=== PATIENT | male | born 1965 | race Caucasian/White ===

== ENCOUNTER 2016-11-22 15:47 | Inpatient (IN) | payer MEDICAID ==
[~2016-11-22] VITALS: Ht 177.8 cm; Wt 78.0 kg
[2016-11-22 16:22] VITALS: BP_SYST 123
[2016-11-22] MEDS ORDERED: VANCOMYCIN HCL 1,000 MG in NS 250 ML IV ONE (16:30)
[2016-11-22] MEDS ORDERED: DIPH-TET-PERTUS Vaccine 0.5 ML VIAL (ADACEL) I.M. ONE (16:30)
[2016-11-22 16:56] LABS: BASOPHILS % (AUTO) 0.3 % (0.0-2.0); EOSINOPHILS # (AUTO) 0.1 K/uL (0.0-0.4); EOSINOPHILS % (AUTO) 0.9 % (0.0-4.0); HEMATOCRIT 34.3 % (36-54); HEMOGLOBIN 11.2 g/dL (14.0-18.0); LYMPHOCYTES # (AUTO) 1.5 K/uL (1.0-5.5); LYMPHOCYTES % (AUTO) 10.8 % (20.5-51.5); MEAN CORPUSCULAR HEMOGLOBIN 28 pg (27-31); MEAN CORPUSCULAR HGB CONC 33 % (32-36); MEAN CORPUSCULAR VOLUME 85 fL (79.0-98.0); MONOCYTES # (AUTO) 0.6 K/uL (0.0-1.0); MONOCYTES % (AUTO) 4.7 % (1.7-9.3); NEUTROPHILS # (AUTO) 11.3 K/uL (1.8-7.7); NEUTROPHILS % (AUTO) 83.3 % (40.0-70.0); PLATELET COUNT (AUTO) 422 K/uL (130-430); RED BLOOD CELL COUNT(AUTO) 4.03 MIL/uL (4.2-6.2); RED CELL DISTRIBUTION WIDTH 12.3 % (9.0-15.0); WHITE BLOOD COUNT (AUTO) 13.5 K/uL (4.8-10.8)
[2016-11-22] MEDS ORDERED: MORPHINE 4 MG/ML INJ. SYRINGE IVP ONE (17:00)
[2016-11-22] MEDS ORDERED: ONDANSETRON HCL 4 MG/2 ML VIAL IVP ONE (17:00)
[2016-11-22 17:07] LABS: PROTHROMBIN TIME 10.7 SECS (9.5-12.5)
[2016-11-22 17:12] LABS: CALCIUM 8.6 mg/dL (8.4-11.0); CREATININE 1.76 mg/dL (0.55-1.30); POTASSIUM 4.6 mmol/L (3.5-5.1); TOTAL BILIRUBIN 0.4 mg/dL (0.0-1.0)
[2016-11-22] MEDS ORDERED: INSULIN REGULAR, HUMAN 10 UNITS/0.1 ML INJ IVP ONE (17:30)
[2016-11-22] MEDS ORDERED: VANCOMYCIN HCL 1000 MG/VIAL IV ONE (18:06)
[2016-11-22] MEDS ORDERED: DEXTROSE 50% JECT 50 ML DISP.SYRIN IVP PRN (18:45)
[2016-11-22 19:45] VITALS: BP_SYST 115
[2016-11-22] MEDS: NACL 0.9% 1,000 ML IV SCH (21:05)
[2016-11-22] MEDS: PIPERACILLIN/TAZO 3.375/DEX-IS 50 ML IV SCH (21:05)
[2016-11-22] MEDS: INSULIN REGULAR, HUMAN 100 UNITS/ML, 10 ML VIAL (novoLIN R) SUBCUT PRN (23:45)
[2016-11-23] VITALS: BP_SYST 134
[2016-11-23] MEDS: PIPERACILLIN/TAZO 3.375/DEX-IS 50 ML IV SCH ×4 (02:27→20:25)
[2016-11-23 04:00] VITALS: BP_SYST 132
[2016-11-23] MEDS: NACL 0.9% 1,000 ML IV SCH (09:51)
[2016-11-23] MEDS: VANCOMYCIN HCL 1,000 MG in NS 250 ML IV SCH (09:51)
[2016-11-23 12:00] VITALS: BP_SYST 127
[2016-11-23 12:11] LABS: BASOPHILS % (AUTO) 0.2 % (0.0-2.0); EOSINOPHILS # (AUTO) 0.1 K/uL (0.0-0.4); HEMATOCRIT 32.4 % (36-54); HEMOGLOBIN 10.7 g/dL (14.0-18.0); LYMPHOCYTES # (AUTO) 1.9 K/uL (1.0-5.5); LYMPHOCYTES % (AUTO) 16.9 % (20.5-51.5); MEAN CORPUSCULAR HEMOGLOBIN 28 pg (27-31); MEAN CORPUSCULAR HGB CONC 33 % (32-36); MEAN CORPUSCULAR VOLUME 86 fL (79.0-98.0); MONOCYTES # (AUTO) 0.7 K/uL (0.0-1.0); MONOCYTES % (AUTO) 6.5 % (1.7-9.3); NEUTROPHILS # (AUTO) 8.8 K/uL (1.8-7.7); NEUTROPHILS % (AUTO) 75.4 % (40.0-70.0); PLATELET COUNT (AUTO) 364 K/uL (130-430); RED BLOOD CELL COUNT(AUTO) 3.78 MIL/uL (4.2-6.2); RED CELL DISTRIBUTION WIDTH 12.6 % (9.0-15.0); WHITE BLOOD COUNT (AUTO) 11.5 K/uL (4.8-10.8)
[2016-11-23 12:19] LABS: CALCIUM 8.4 mg/dL (8.4-11.0); CREATININE 1.4 mg/dL (0.55-1.30); POTASSIUM 4.9 mmol/L (3.5-5.1)
[2016-11-23 12:23] LABS: ALBUMIN 2.7 g/dL (3.4-4.8); TOTAL BILIRUBIN 0.3 mg/dL (0.0-1.0); TOTAL PROTEIN, SERUM 7.4 g/dL (6.4-8.3)
[2016-11-23] MEDS: INSULIN REGULAR, HUMAN 100 UNITS/ML, 10 ML VIAL (novoLIN R) SUBCUT PRN ×2 (12:28→17:23)
[2016-11-23 18:04] VITALS: BP_SYST 128
[2016-11-24] VITALS: BP_SYST 147
[2016-11-24] MEDS: PIPERACILLIN/TAZO 3.375/DEX-IS 50 ML IV SCH ×4 (01:07→21:17)
[2016-11-24] MEDS: NACL 0.9% 1,000 ML IV SCH ×3 (01:07→14:08)
[2016-11-24] MEDS: INSULIN REGULAR, HUMAN 100 UNITS/ML, 10 ML VIAL (novoLIN R) SUBCUT PRN ×4 (01:20→17:06)
[2016-11-24 04:00] VITALS: BP_SYST 134
[2016-11-24 09:23] VITALS: BP_SYST 134
[2016-11-24] MEDS: VANCOMYCIN HCL 1,000 MG in NS 250 ML IV SCH (09:38)
[2016-11-24 12:00] VITALS: BP_SYST 145
[2016-11-24 18:24] VITALS: BP_SYST 138
[2016-11-24 19:10] VITALS: BP_SYST 138
[2016-11-25] VITALS (7 sets, daily range): BP systolic 124–153
[2016-11-25] MEDS: PIPERACILLIN/TAZO 3.375/DEX-IS 50 ML IV SCH ×2 (00:41→05:46)
[2016-11-25] MEDS: INSULIN REGULAR, HUMAN 100 UNITS/ML, 10 ML VIAL (novoLIN R) SUBCUT PRN ×4 (00:47→17:31)
[2016-11-25] MEDS: NACL 0.9% 1,000 ML IV SCH ×2 (06:45→16:56)
[2016-11-25] MEDS: VANCOMYCIN HCL 1,000 MG in NS 250 ML IV SCH (09:06)
[2016-11-25 10:59] LABS: BASOPHILS # (AUTO) 0.1 K/uL (0.0-0.2); BASOPHILS % (AUTO) 0.7 % (0.0-2.0); EOSINOPHILS # (AUTO) 0.1 K/uL (0.0-0.4); EOSINOPHILS % (AUTO) 1.2 % (0.0-4.0); HEMATOCRIT 34.5 % (36-54); HEMOGLOBIN 11.4 g/dL (14.0-18.0); LYMPHOCYTES # (AUTO) 2.2 K/uL (1.0-5.5); MEAN CORPUSCULAR HEMOGLOBIN 28 pg (27-31); MEAN CORPUSCULAR HGB CONC 33 % (32-36); MEAN CORPUSCULAR VOLUME 86 fL (79.0-98.0); MONOCYTES # (AUTO) 0.5 K/uL (0.0-1.0); MONOCYTES % (AUTO) 5.5 % (1.7-9.3); NEUTROPHILS # (AUTO) 6.5 K/uL (1.8-7.7); NEUTROPHILS % (AUTO) 69.6 % (40.0-70.0); PLATELET COUNT (AUTO) 442 K/uL (130-430); RED BLOOD CELL COUNT(AUTO) 4.02 MIL/uL (4.2-6.2); RED CELL DISTRIBUTION WIDTH 12.6 % (9.0-15.0); WHITE BLOOD COUNT (AUTO) 9.4 K/uL (4.8-10.8)
[2016-11-25 11:01] LABS: CALCIUM 8.6 mg/dL (8.4-11.0); CREATININE 1.3 mg/dL (0.55-1.30); POTASSIUM 4.2 mmol/L (3.5-5.1)
[2016-11-25 11:06] LABS: ALBUMIN 2.8 g/dL (3.4-4.8); TOTAL BILIRUBIN 0.3 mg/dL (0.0-1.0); TOTAL PROTEIN, SERUM 7.9 g/dL (6.4-8.3)
[2016-11-25] MEDS: BALSAM PERU/CASTOR OIL 60 GM OINT...G. TP SCH (17:28)
[2016-11-25] MEDS: LACTOBACILLUS RHAMNOSUS GG 1 CAP CAPSULE PO SCH (22:41)
[2016-11-25] MEDS: CEFEPIME 1 GM in D5W 50 ML IV SCH (22:42)
[2016-11-26] VITALS (7 sets, daily range): BP systolic 118–185
[2016-11-26] MEDS: INSULIN REGULAR, HUMAN 100 UNITS/ML, 10 ML VIAL (novoLIN R) SUBCUT PRN ×3 (00:06→18:47)
[2016-11-26] MEDS: NACL 0.9% 1,000 ML IV SCH ×3 (09:30→22:45)
[2016-11-26] MEDS: LACTOBACILLUS RHAMNOSUS GG 1 CAP CAPSULE PO SCH ×2 (09:31→20:33)
[2016-11-26] MEDS: CEFEPIME 1 GM in D5W 50 ML IV SCH ×2 (09:31→20:34)
[2016-11-26] MEDS: BALSAM PERU/CASTOR OIL 60 GM OINT...G. TP SCH (09:50)
[2016-11-26] MEDS: VANCOMYCIN HCL 1,000 MG in NS 250 ML IV SCH ×2 (10:23→20:42)
[2016-11-26] MEDS: D5NS 1,000 ML IV SCH ×2 (14:19→23:45)
[2016-11-26 14:48] LABS: C-REACTIVE PROTEIN QUANT 0.6 mg/dL (0-0.5); THYROID STIMULATING HORMONE 0.66 uIu/mL (0.34-4.82)
[2016-11-26 15:18] LABS: RETICULOCYTE COUNT 2.1 % (0.5-1.5)
[2016-11-26 15:41] LABS: BILIRUBIN,URINE NEGATIVE (NEGATIVE); BLOOD, URINE NEGATIVE (NEGATIVE); CLARITY/URINE CLEAR (CLEAR); COLOR,URINE YELLOW (YELLOW); GLUCOSE,URINE TRACE (NEGATIVE); KETONES,URINE NEGATIVE (NEGATIVE); LEUKOCYTE ESTERASE ,URINE NEGATIVE (NEGATIVE); NITRITE, URINE NEGATIVE (NEGATIVE); PROTEIN URINE TRACE (NEGATIVE); UROBILINOGEN,URINE 0.2 (0.2-1.0)
[2016-11-26 15:59] LABS: BACTERIA,URINE None Seen /HPF (None Seen); RBC,URINE 0-3 /HPF (0-3); WBC,URINE 0-3 /HPF (0-3)
[2016-11-26] MEDS ORDERED: NACL 0.9% 1,000 ML IV SCH (16:59)
[2016-11-26] MEDS ORDERED: MORPHINE 2 MG/ML INJ. SYRINGE IVP PRN ×3 (17:00)
[2016-11-26] MEDS ORDERED: METOCLOPRAMIDE HCL 10 MG/2 ML VIAL IVP PRN (17:00)
[2016-11-27] MEDS: INSULIN REGULAR, HUMAN 100 UNITS/ML, 10 ML VIAL (novoLIN R) SUBCUT PRN ×3 (05:54→17:19)
[2016-11-27] MEDS: NACL 0.9% 1,000 ML IV SCH ×2 (08:45→18:45)
[2016-11-27] MEDS: BALSAM PERU/CASTOR OIL 60 GM OINT...G. TP SCH (09:00)
[2016-11-27 09:09] VITALS: BP_SYST 125
[2016-11-27] MEDS: LACTOBACILLUS RHAMNOSUS GG 1 CAP CAPSULE PO SCH ×2 (09:10→20:36)
[2016-11-27] MEDS: CEFEPIME 1 GM in D5W 50 ML IV SCH ×2 (09:11→20:37)
[2016-11-27] MEDS: VANCOMYCIN HCL 1,000 MG in NS 250 ML IV SCH ×2 (09:11→20:38)
[2016-11-27 12:25] VITALS: BP_SYST 130
[2016-11-27 13:22] LABS: FOLATE (FOLIC ACID) 12.9 ng/mL (>3.0)
[2016-11-27 16:16] VITALS: BP_SYST 140
[2016-11-27 19:10] VITALS: BP_SYST 132
[2016-11-27 23:53] VITALS: BP_SYST 122
[2016-11-28] MEDS: INSULIN REGULAR, HUMAN 100 UNITS/ML, 10 ML VIAL (novoLIN R) SUBCUT PRN ×4 (00:15→17:25)
[2016-11-28] MEDS: NACL 0.9% 1,000 ML IV SCH ×2 (04:45→14:45)
[2016-11-28 04:46] VITALS: BP_SYST 103
[2016-11-28 08:30] VITALS: BP_SYST 108
[2016-11-28] MEDS: BALSAM PERU/CASTOR OIL 60 GM OINT...G. TP SCH (09:00)
[2016-11-28] MEDS: CEFEPIME 1 GM in D5W 50 ML IV SCH ×2 (10:05→21:47)
[2016-11-28] MEDS: LACTOBACILLUS RHAMNOSUS GG 1 CAP CAPSULE PO SCH ×2 (10:05→21:47)
[2016-11-28] MEDS: VANCOMYCIN HCL 1,000 MG in NS 250 ML IV SCH ×2 (11:36→22:26)
[2016-11-28 12:08] VITALS: BP_SYST 136
[2016-11-28 16:04] VITALS: BP_SYST 141
[2016-11-29] VITALS (7 sets, daily range): BP systolic 107–151
[2016-11-29] MEDS: INSULIN REGULAR, HUMAN 100 UNITS/ML, 10 ML VIAL (novoLIN R) SUBCUT PRN ×5 (00:14→23:47)
[2016-11-29] MEDS: NACL 0.9% 1,000 ML IV SCH ×3 (05:17→17:12)
[2016-11-29 06:38] LABS: BASOPHILS # (AUTO) 0.1 K/uL (0.0-0.2); BASOPHILS % (AUTO) 0.8 % (0.0-2.0); EOSINOPHILS # (AUTO) 0.2 K/uL (0.0-0.4); EOSINOPHILS % (AUTO) 1.9 % (0.0-4.0); HEMATOCRIT 34.3 % (36-54); HEMOGLOBIN 11.3 g/dL (14.0-18.0); LYMPHOCYTES # (AUTO) 2.6 K/uL (1.0-5.5); LYMPHOCYTES % (AUTO) 26.4 % (20.5-51.5); MEAN CORPUSCULAR HEMOGLOBIN 28 pg (27-31); MEAN CORPUSCULAR HGB CONC 33 % (32-36); MEAN CORPUSCULAR VOLUME 86 fL (79.0-98.0); MONOCYTES # (AUTO) 0.8 K/uL (0.0-1.0); MONOCYTES % (AUTO) 7.9 % (1.7-9.3); NEUTROPHILS # (AUTO) 6.1 K/uL (1.8-7.7); PLATELET COUNT (AUTO) 447 K/uL (130-430); RED BLOOD CELL COUNT(AUTO) 3.98 MIL/uL (4.2-6.2); RED CELL DISTRIBUTION WIDTH 12.6 % (9.0-15.0); WHITE BLOOD COUNT (AUTO) 9.8 K/uL (4.8-10.8)
[2016-11-29 06:54] LABS: ALBUMIN 2.7 g/dL (3.4-4.8); CALCIUM 8.4 mg/dL (8.4-11.0); CREATININE 1.25 mg/dL (0.55-1.30); POTASSIUM 4.3 mmol/L (3.5-5.1); TOTAL BILIRUBIN 0.4 mg/dL (0.0-1.0); TOTAL PROTEIN, SERUM 7.5 g/dL (6.4-8.3)
[2016-11-29] MEDS: CEFEPIME 1 GM in D5W 50 ML IV SCH ×2 (09:28→20:57)
[2016-11-29] MEDS: LACTOBACILLUS RHAMNOSUS GG 1 CAP CAPSULE PO SCH ×2 (09:28→20:57)
[2016-11-29] MEDS: BALSAM PERU/CASTOR OIL 60 GM OINT...G. TP SCH (09:28)
[2016-11-29] MEDS: VANCOMYCIN HCL 1,000 MG in NS 250 ML IV SCH ×2 (10:03→21:31)
[2016-11-29] MEDS ORDERED: CEFE1FRO IV (15:35)
[2016-11-29] MEDS ORDERED: TRAM50TA92 PO (17:18)
[2016-11-30] VITALS (7 sets, daily range): BP systolic 107–152
[2016-11-30 06:30] LABS: BASOPHILS # (AUTO) 0.1 K/uL (0.0-0.2); BASOPHILS % (AUTO) 0.8 % (0.0-2.0); EOSINOPHILS # (AUTO) 0.3 K/uL (0.0-0.4); EOSINOPHILS % (AUTO) 2.6 % (0.0-4.0); HEMATOCRIT 35.4 % (36-54); HEMOGLOBIN 11.7 g/dL (14.0-18.0); LYMPHOCYTES # (AUTO) 2.6 K/uL (1.0-5.5); LYMPHOCYTES % (AUTO) 23.7 % (20.5-51.5); MEAN CORPUSCULAR HEMOGLOBIN 28 pg (27-31); MEAN CORPUSCULAR HGB CONC 33 % (32-36); MEAN CORPUSCULAR VOLUME 86 fL (79.0-98.0); MONOCYTES # (AUTO) 0.8 K/uL (0.0-1.0); MONOCYTES % (AUTO) 7.3 % (1.7-9.3); NEUTROPHILS % (AUTO) 65.6 % (40.0-70.0); PLATELET COUNT (AUTO) 465 K/uL (130-430); RED BLOOD CELL COUNT(AUTO) 4.12 MIL/uL (4.2-6.2); RED CELL DISTRIBUTION WIDTH 13.1 % (9.0-15.0); WHITE BLOOD COUNT (AUTO) 10.8 K/uL (4.8-10.8)
[2016-11-30] MEDS: INSULIN REGULAR, HUMAN 100 UNITS/ML, 10 ML VIAL (novoLIN R) SUBCUT PRN ×3 (06:34→17:55)
[2016-11-30 07:08] LABS: ALBUMIN 2.9 g/dL (3.4-4.8); CALCIUM 8.9 mg/dL (8.4-11.0); CREATININE 1.33 mg/dL (0.55-1.30); POTASSIUM 4.8 mmol/L (3.5-5.1); TOTAL BILIRUBIN 0.3 mg/dL (0.0-1.0); TOTAL PROTEIN, SERUM 7.7 g/dL (6.4-8.3)
[2016-11-30] MEDS: NACL 0.9% 1,000 ML IV SCH ×2 (07:24→17:51)
[2016-11-30] MEDS: VANCOMYCIN HCL 1,000 MG in NS 250 ML IV SCH ×2 (10:57→20:24)
[2016-11-30] MEDS: CEFEPIME 1 GM in D5W 50 ML IV SCH ×2 (10:58→19:11)
[2016-11-30] MEDS: BALSAM PERU/CASTOR OIL 60 GM OINT...G. TP SCH (11:19)
[2016-11-30] MEDS: LACTOBACILLUS RHAMNOSUS GG 1 CAP CAPSULE PO SCH ×2 (11:19→20:23)
[2016-11-30] MEDS ORDERED: GLIP5TAB13 PO (22:41)
== END 2016-11-30 23:15 | disposition home health service (06) | DRG 314 ==
LOC: SED 15:47 → SMU 18:04
PROVIDERS: ADMIT Internal Medicine Hospice and Palliative Medicine; ATTEND Internal Medicine Hospice and Palliative Medicine
PROC: 0Y6P0Z1 Detachment at Right 1st Toe, High, Open Approach (ICD-10-PCS; principal; 2016-11-27)
DX: E11.69 Type 2 diabetes mellitus with other specified complication (principal); M86.171 Other acute osteomyelitis, right ankle and foot; L97.519 Non-pressure chronic ulcer of other part of right foot with unspecified severity; D63.8 Anemia in other chronic diseases classified elsewhere; E11.621 Type 2 diabetes mellitus with foot ulcer
CPT/HCPCS: 36415; 71010; 73721; 80053; 80202-TC; 81000-TC; 82607; 82746; 82962; 83036; 83605; 84443-TC; 85025; 85044-TC; 85610-TC; 85651-TC; 86140; 87040-TC; 87070-TC; 87186-TC; 88305; 88311; 90715; 93005; 94010; 94760; 96365; 96375; 99285; J0692; J1815; J1956; J2270; J2405; J2543; J3370; J7030; J7042; J7050; J7060

== ENCOUNTER 2017-09-05 15:40 | Inpatient (IN) | payer MEDICAID ==
[~2017-09-05] VITALS: Ht 177.8 cm; Wt 79.4 kg
[~2017-09-05 15:40] MED LIST: CEFE1FRO IV; GLIP5TAB13 PO; TRAM50TA92 PO
[2017-09-05 15:44] VITALS: BP_SYST 142
[2017-09-05 16:18] LABS: BASOPHILS # (AUTO) 0.1 K/uL (0.0-0.2); BASOPHILS % (AUTO) 0.3 % (0.0-2.0); EOSINOPHILS # (AUTO) 0.1 K/uL (0.0-0.4); EOSINOPHILS % (AUTO) 0.4 % (0.0-4.0); HEMATOCRIT 32.6 % (36-54); HEMOGLOBIN 10.9 g/dL (14.0-18.0); LYMPHOCYTES # (AUTO) 0.7 K/uL (1.0-5.5); LYMPHOCYTES % (AUTO) 3.7 % (20.5-51.5); MEAN CORPUSCULAR HEMOGLOBIN 29 pg (27-31); MEAN CORPUSCULAR HGB CONC 34 % (32-36); MEAN CORPUSCULAR VOLUME 85 fL (79.0-98.0); MONOCYTES % (AUTO) 5.3 % (1.7-9.3); NEUTROPHILS # (AUTO) 16.2 K/uL (1.8-7.7); PLATELET COUNT (AUTO) 384 K/uL (130-430); RED BLOOD CELL COUNT(AUTO) 3.83 MIL/uL (4.2-6.2); RED CELL DISTRIBUTION WIDTH 12.5 % (9.0-15.0); WHITE BLOOD COUNT (AUTO) 18.1 K/uL (4.8-10.8)
[2017-09-05 16:34] LABS: CALCIUM 8.8 mg/dL (8.4-11.0); CREATININE 1.6 mg/dL (0.55-1.30); POTASSIUM 3.6 mmol/L (3.5-5.1)
[2017-09-05 16:40] LABS: TOTAL BILIRUBIN 0.5 mg/dL (0.0-1.0)
[2017-09-05 16:47] LABS: NEUTROPHILS % (AUTO) 90.3 % (40.0-70.0)
[2017-09-05] MEDS ORDERED: DIPHENHYDRAMINE INJ 50 MG/ML VIAL IVP ONE (17:00)
[2017-09-05] MEDS ORDERED: MORPHINE 4 MG/ML INJ. SYRINGE IVP ONE (17:00)
[2017-09-05] MEDS ORDERED: CLINDAMYCIN 600 mg/50mL D5W 50 ML IV ONE (17:00)
[2017-09-05] MEDS ORDERED: VANCOMYCIN HCL 1,000 MG in NS 250 ML IV ONE (17:00)
[2017-09-05] MEDS ORDERED: VANCOMYCIN HCL 1000 MG/VIAL IV ONE (17:06)
[2017-09-05] MEDS: PIPERACILLIN/TAZO 3.375/DEX-IS 50 ML IV SCH (18:00)
[2017-09-05] MEDS ORDERED: DEXTROSE 50% JECT 50 ML DISP.SYRIN IVP PRN (18:15)
[2017-09-05] MEDS ORDERED: ONDANSETRON HCL 4 MG/2 ML VIAL IVP PRN (18:15)
[2017-09-05 18:31] VITALS: BP_SYST 127
[2017-09-05] MEDS: NACL 0.9% 1,000 ML IV SCH (18:34)
[2017-09-05 19:39] VITALS: BP_SYST 107
[2017-09-05 20:03] VITALS: BP_SYST 107
[2017-09-06 00:32] VITALS: BP_SYST 108
[2017-09-06] MEDS: PIPERACILLIN/TAZO 3.375/DEX-IS 50 ML IV SCH ×5 (00:50→23:09)
[2017-09-06] MEDS: INSULIN REGULAR, HUMAN 100 UNITS/ML, 10 ML VIAL (novoLIN R) SUBCUT PRN ×2 (00:54→17:11)
[2017-09-06] MEDS: MORPHINE 4 MG/ML INJ. SYRINGE IVP PRN ×2 (01:05→20:12)
[2017-09-06] MEDS: NACL 0.9% 1,000 ML IV SCH ×3 (06:21→23:03)
[2017-09-06 06:25] LABS: BASOPHILS % (AUTO) 0.3 % (0.0-2.0); EOSINOPHILS # (AUTO) 0.1 K/uL (0.0-0.4); EOSINOPHILS % (AUTO) 0.9 % (0.0-4.0); HEMATOCRIT 28.6 % (36-54); HEMOGLOBIN 9.9 g/dL (14.0-18.0); LYMPHOCYTES # (AUTO) 1.4 K/uL (1.0-5.5); LYMPHOCYTES % (AUTO) 8.5 % (20.5-51.5); MEAN CORPUSCULAR HEMOGLOBIN 29 pg (27-31); MEAN CORPUSCULAR HGB CONC 35 % (32-36); MEAN CORPUSCULAR VOLUME 84 fL (79.0-98.0); MONOCYTES # (AUTO) 1.2 K/uL (0.0-1.0); MONOCYTES % (AUTO) 7.1 % (1.7-9.3); NEUTROPHILS # (AUTO) 13.6 K/uL (1.8-7.7); NEUTROPHILS % (AUTO) 83.2 % (40.0-70.0); PLATELET COUNT (AUTO) 311 K/uL (130-430); RED BLOOD CELL COUNT(AUTO) 3.43 MIL/uL (4.2-6.2); RED CELL DISTRIBUTION WIDTH 12.5 % (9.0-15.0); WHITE BLOOD COUNT (AUTO) 16.3 K/uL (4.8-10.8)
[2017-09-06] MEDS: ACETAMINOPHEN 325 MG TABLET PO PRN ×2 (06:26→22:58)
[2017-09-06 06:44] LABS: ALBUMIN 2.5 g/dL (3.4-4.8); CALCIUM 8.3 mg/dL (8.4-11.0); CREATININE 1.62 mg/dL (0.55-1.30); POTASSIUM 4.1 mmol/L (3.5-5.1); TOTAL BILIRUBIN 0.7 mg/dL (0.0-1.0)
[2017-09-06 08:30] VITALS: BP_SYST 122
[2017-09-06 11:43] VITALS: BP_SYST 129
[2017-09-06] MEDS: VANCOMYCIN HCL 750 MG in NS 250 ML IV SCH (12:03)
[2017-09-06] MEDS ORDERED: GADOPENTETATE DIMEGLUMINE 15 ML VIAL IV ONE (12:36)
[2017-09-06 16:00] VITALS: BP_SYST 138
[2017-09-06 20:00] VITALS: BP_SYST 134
[2017-09-06 23:24] VITALS: BP_SYST 128
[2017-09-07] MEDS: VANCOMYCIN HCL 750 MG in NS 250 ML IV SCH ×2 (00:03→12:28)
[2017-09-07] MEDS: INSULIN REGULAR, HUMAN 100 UNITS/ML, 10 ML VIAL (novoLIN R) SUBCUT PRN (00:08)
[2017-09-07] MEDS: PIPERACILLIN/TAZO 3.375/DEX-IS 50 ML IV SCH ×3 (06:53→18:00)
[2017-09-07 08:02] VITALS: BP_SYST 137
[2017-09-07] MEDS: NACL 0.9% 1,000 ML IV SCH (11:26)
[2017-09-07] MEDS: NEOMY SULF/BACITRAC ZN/POLY 14.2 GM OINT..GM. TP SCH ×2 (11:28→22:34)
[2017-09-07 12:11] VITALS: BP_SYST 129
[2017-09-07] MEDS: MORPHINE 4 MG/ML INJ. SYRINGE IVP PRN ×2 (14:51→22:33)
[2017-09-07 16:50] VITALS: BP_SYST 109
[2017-09-07 19:10] VITALS: BP_SYST 110
[2017-09-08] MEDS: VANCOMYCIN HCL 750 MG in NS 250 ML IV SCH ×2 (00:04→14:10)
[2017-09-08] MEDS: PIPERACILLIN/TAZO 3.375/DEX-IS 50 ML IV SCH ×4 (00:04→16:55)
[2017-09-08 00:54] VITALS: BP_SYST 122
[2017-09-08] MEDS: NACL 0.9% 1,000 ML IV SCH ×2 (02:57→16:56)
[2017-09-08] MEDS: MORPHINE 4 MG/ML INJ. SYRINGE IVP PRN ×2 (04:58→21:01)
[2017-09-08] MEDS ORDERED: FLU VACC QS 2017-18(36MOS+)/PF 0.5 ML/SYR SYRINGE I.M. PRN (07:15)
[2017-09-08 08:36] VITALS: BP_SYST 133
[2017-09-08] MEDS: NEOMY SULF/BACITRAC ZN/POLY 14.2 GM OINT..GM. TP SCH ×2 (10:00→21:01)
[2017-09-08] MEDS ORDERED: CEPH-568 PO (12:19)
[2017-09-08 12:36] VITALS: BP_SYST 132
[2017-09-08 16:27] VITALS: BP_SYST 128
[2017-09-08 19:11] VITALS: BP_SYST 128
[2017-09-09] MEDS: VANCOMYCIN HCL 750 MG in NS 250 ML IV SCH ×2 (00:15→12:20)
[2017-09-09] MEDS: PIPERACILLIN/TAZO 3.375/DEX-IS 50 ML IV SCH ×3 (00:15→11:51)
[2017-09-09] MEDS: MORPHINE 4 MG/ML INJ. SYRINGE IVP PRN ×3 (00:45→12:21)
[2017-09-09] MEDS: NACL 0.9% 1,000 ML IV SCH ×2 (02:00→11:51)
[2017-09-09 02:45] VITALS: BP_SYST 139
[2017-09-09 08:00] VITALS: BP_SYST 119
[2017-09-09] MEDS: NEOMY SULF/BACITRAC ZN/POLY 14.2 GM OINT..GM. TP SCH (08:13)
[2017-09-09 08:57] LABS: BASOPHILS # (AUTO) 0.1 K/uL (0.0-0.2); BASOPHILS % (AUTO) 0.9 % (0.0-2.0); EOSINOPHILS # (AUTO) 0.5 K/uL (0.0-0.4); EOSINOPHILS % (AUTO) 4.1 % (0.0-4.0); HEMATOCRIT 29.3 % (36-54); HEMOGLOBIN 9.8 g/dL (14.0-18.0); MEAN CORPUSCULAR HEMOGLOBIN 29 pg (27-31); MEAN CORPUSCULAR HGB CONC 33 % (32-36); MEAN CORPUSCULAR VOLUME 86 fL (79.0-98.0); MONOCYTES # (AUTO) 1.2 K/uL (0.0-1.0); NEUTROPHILS # (AUTO) 7.8 K/uL (1.8-7.7); PLATELET COUNT (AUTO) 416 K/uL (130-430); RED BLOOD CELL COUNT(AUTO) 3.42 MIL/uL (4.2-6.2); RED CELL DISTRIBUTION WIDTH 12.7 % (9.0-15.0); WHITE BLOOD COUNT (AUTO) 11.6 K/uL (4.8-10.8)
[2017-09-09 09:13] LABS: CALCIUM 8.6 mg/dL (8.4-11.0); CREATININE 1.36 mg/dL (0.55-1.30); POTASSIUM 4.5 mmol/L (3.5-5.1)
[2017-09-09 09:15] LABS: ALBUMIN 2.2 g/dL (3.4-4.8); TOTAL BILIRUBIN 0.3 mg/dL (0.0-1.0)
[2017-09-09 12:39] VITALS: BP_SYST 127
[2017-09-09 16:00] VITALS: BP_SYST 127
[2017-09-09 16:08] VITALS: BP_SYST 122
== END 2017-09-09 16:00 | disposition home or self-care (01) | DRG 720 ==
LOC: SED 15:40 → SMU 17:16
PROVIDERS: ADMIT Internal Medicine Hospice and Palliative Medicine; ATTEND Internal Medicine Hospice and Palliative Medicine
PROC: 0HBNXZZ Excision of Left Foot Skin, External Approach (ICD-10-PCS; principal; 2017-09-07)
DX: A41.9 Sepsis, unspecified organism (principal); E43 Unspecified severe protein-calorie malnutrition; E11.22 Type 2 diabetes mellitus with diabetic chronic kidney disease; E11.621 Type 2 diabetes mellitus with foot ulcer; Z68.25 Body mass index [BMI] 25.0-25.9, adult; L03.116 Cellulitis of left lower limb; D64.9 Anemia, unspecified; B95.61 Methicillin susceptible Staphylococcus aureus infection as the cause of diseases classified elsewhere; L97.429 Non-pressure chronic ulcer of left heel and midfoot with unspecified severity; I12.9 Hypertensive chronic kidney disease with stage 1 through stage 4 chronic kidney disease, or unspecified chronic kidney disease; N18.9 Chronic kidney disease, unspecified; E11.65 Type 2 diabetes mellitus with hyperglycemia; Z89.411 Acquired absence of right great toe
CPT/HCPCS: 36415; 73721; 76770; 80053; 80202-TC; 82962; 83036; 83605; 85025; 87040-TC; 87070-TC; 87075-TC; 87186-TC; 93971; 96365; 96366; 96368; 96375; 99285; A9579; J1200; J1815; J2270; J2543; J3370; J3490; J7030; J7050; Q2037

== ENCOUNTER 2018-01-17 23:40 | Inpatient (IN) | payer MEDICAID ==
[~2018-01-17] VITALS: Ht 177.8 cm; Wt 76.7 kg
[2018-01-17 23:57] VITALS: BP_SYST 131
[2018-01-18] VITALS (7 sets, daily range): BP systolic 102–127
[2018-01-18] MEDS ORDERED: GLU500 PO (01:51)
[2018-01-18] MEDS ORDERED: GLIP5TAB13 PO (01:51)
[2018-01-18] MEDS ORDERED: LISI10TA5 PO (01:51)
[2018-01-18] MEDS ORDERED: FERR325T22 PO (01:51)
[2018-01-18] MEDS ORDERED: LIP10 PO (01:51)
[2018-01-18 02:21] LABS: CALCIUM 8.9 mg/dL (8.4-11.0); CREATININE 2.16 mg/dL (0.55-1.30); POTASSIUM 4.1 mmol/L (3.5-5.1)
[2018-01-18 02:26] LABS: BASOPHILS # (AUTO) 0.1 K/uL (0.0-0.2); BASOPHILS % (AUTO) 0.5 % (0.0-2.0); EOSINOPHILS # (AUTO) 0.1 K/uL (0.0-0.4); EOSINOPHILS % (AUTO) 1.3 % (0.0-4.0); HEMOGLOBIN 11.1 g/dL (14.0-18.0); LYMPHOCYTES # (AUTO) 1.5 K/uL (1.0-5.5); LYMPHOCYTES % (AUTO) 14.3 % (20.5-51.5); MEAN CORPUSCULAR HEMOGLOBIN 29 pg (27-31); MEAN CORPUSCULAR HGB CONC 34 % (32-36); MEAN CORPUSCULAR VOLUME 86 fL (79.0-98.0); MONOCYTES # (AUTO) 0.9 K/uL (0.0-1.0); MONOCYTES % (AUTO) 8.5 % (1.7-9.3); NEUTROPHILS # (AUTO) 7.6 K/uL (1.8-7.7); NEUTROPHILS % (AUTO) 75.4 % (40.0-70.0); PLATELET COUNT (AUTO) 373 K/uL (130-430); RED BLOOD CELL COUNT(AUTO) 3.84 MIL/uL (4.2-6.2); RED CELL DISTRIBUTION WIDTH 12.4 % (9.0-15.0); WHITE BLOOD COUNT (AUTO) 10.2 K/uL (4.8-10.8)
[2018-01-18 02:28] LABS: ALBUMIN 3.5 g/dL (3.4-4.8); TOTAL BILIRUBIN 0.3 mg/dL (0.0-1.0)
[2018-01-18] MEDS ORDERED: CLINDAMYCIN 900 mg/50mL D5W 50 ML IV ONE (02:45)
[2018-01-18 03:34] LABS: PROTHROMBIN TIME 10.1 SECS (9.5-12.5)
[2018-01-18] MEDS ORDERED: LORazepam 2 MG/ML VIAL IVP PRN (07:00)
[2018-01-18] MEDS ORDERED: INSULIN REGULAR, HUMAN 100 UNITS/ML, 10 ML VIAL (novoLIN R) SUBCUT PRN (07:00)
[2018-01-18] MEDS ORDERED: ALBUTEROL SULFATE 0.083% 2.5 MG/3 ML VIAL.NEB INH PRN (07:00)
[2018-01-18] MEDS ORDERED: ACETAMINOPHEN 325 MG TABLET PO PRN (07:00)
[2018-01-18] MEDS ORDERED: ONDANSETRON HCL 4 MG/2 ML VIAL IVP PRN (07:00)
[2018-01-18] MEDS ORDERED: DEXTROSE 50%-WATER 50 ML DISP.SYRIN IVP PRN ×2 (07:15)
[2018-01-18] MEDS ORDERED: GLUCOSE 15 GM GEL (in 37.5 GM TUBE) PO PRN ×2 (07:15)
[2018-01-18] MEDS: ENOXAPARIN SODIUM 40 MG/0.4 ML SYRINGE SUBCUT SCH (09:00)
[2018-01-18] MEDS: HYDROcodone/ACETAMIN 5-325 MG TAB (NORCO/ VICODIN) PO PRN ×3 (10:05→20:00)
[2018-01-18] MEDS: PIPERACILLIN/TAZO 3.375/DEX-IS 50 ML IV SCH ×4 (10:06→23:40)
[2018-01-18] MEDS: ATORVASTATIN 10 MG TABLET PO SCH (10:06)
[2018-01-19] VITALS: BP_SYST 111
[2018-01-19] MEDS: PIPERACILLIN/TAZO 3.375/DEX-IS 50 ML IV SCH ×3 (06:34→17:19)
[2018-01-19 07:11] LABS: BASOPHILS # (AUTO) 0.1 K/uL (0.0-0.2); BASOPHILS % (AUTO) 0.7 % (0.0-2.0); EOSINOPHILS # (AUTO) 0.2 K/uL (0.0-0.4); EOSINOPHILS % (AUTO) 3.1 % (0.0-4.0); HEMATOCRIT 30.4 % (36-54); HEMOGLOBIN 10.4 g/dL (14.0-18.0); LYMPHOCYTES # (AUTO) 2.5 K/uL (1.0-5.5); LYMPHOCYTES % (AUTO) 31.1 % (20.5-51.5); MEAN CORPUSCULAR HEMOGLOBIN 30 pg (27-31); MEAN CORPUSCULAR HGB CONC 34 % (32-36); MEAN CORPUSCULAR VOLUME 87 fL (79.0-98.0); MONOCYTES # (AUTO) 0.8 K/uL (0.0-1.0); MONOCYTES % (AUTO) 9.6 % (1.7-9.3); NEUTROPHILS # (AUTO) 4.4 K/uL (1.8-7.7); NEUTROPHILS % (AUTO) 55.5 % (40.0-70.0); PLATELET COUNT (AUTO) 331 K/uL (130-430); RED BLOOD CELL COUNT(AUTO) 3.51 MIL/uL (4.2-6.2); RED CELL DISTRIBUTION WIDTH 12.3 % (9.0-15.0)
[2018-01-19 07:29] LABS: ALBUMIN 2.6 g/dL (3.4-4.8); CALCIUM 8.4 mg/dL (8.4-11.0); CREATININE 1.76 mg/dL (0.55-1.30); POTASSIUM 4.5 mmol/L (3.5-5.1); TOTAL BILIRUBIN 0.2 mg/dL (0.0-1.0)
[2018-01-19] MEDS ORDERED: SSREG SUBCUT (08:00)
[2018-01-19 08:01] VITALS: BP_SYST 110
[2018-01-19] MEDS: ATORVASTATIN 10 MG TABLET PO SCH (08:38)
[2018-01-19] MEDS: ENOXAPARIN SODIUM 40 MG/0.4 ML SYRINGE SUBCUT SCH (08:42)
[2018-01-19] MEDS: HYDROcodone/ACETAMIN 5-325 MG TAB (NORCO/ VICODIN) PO PRN ×2 (08:42→15:08)
[2018-01-19] MEDS ORDERED: VANCOMYCIN HCL 1,250 MG in NS 250 ML IV SCH (10:00)
[2018-01-19 12:55] VITALS: BP_SYST 118
[2018-01-19 14:04] VITALS: BP_SYST 118
[2018-01-19 16:57] VITALS: BP_SYST 120
[2018-01-19 21:00] VITALS: BP_SYST 131
== END 2018-01-19 21:19 | DRG 197 ==
LOC: SED 23:40 → SMU 01-18 04:21
PROVIDERS: ADMIT Internal Medicine; ATTEND Internal Medicine
DX: E11.52 Type 2 diabetes mellitus with diabetic peripheral angiopathy with gangrene (principal); N17.0 Acute kidney failure with tubular necrosis; E11.40 Type 2 diabetes mellitus with diabetic neuropathy, unspecified; E11.621 Type 2 diabetes mellitus with foot ulcer; L03.031 Cellulitis of right toe; N28.9 Disorder of kidney and ureter, unspecified; I10 Essential (primary) hypertension; E11.65 Type 2 diabetes mellitus with hyperglycemia; L97.529 Non-pressure chronic ulcer of other part of left foot with unspecified severity; E78.5 Hyperlipidemia, unspecified; Z89.411 Acquired absence of right great toe; Z83.3 Family history of diabetes mellitus; Z79.899 Other long term (current) drug therapy; Z79.84 Long term (current) use of oral hypoglycemic drugs
CPT/HCPCS: 36415; 71045; 73721; 80053; 82962; 83605; 85025; 85610-TC; 85651-TC; 85730-TC; 86140; 87040-TC; 87070-TC; 87075-TC; 87186-TC; 93923; 96365; 99285; J1650; J1815; J2543; J3370; J3490; J7050

== ENCOUNTER 2022-04-19 21:41 | Inpatient (IN) | payer MEDICAID ==
[~2022-04-19] VITALS: Ht 177.8 cm; Wt 79.4 kg
[~2022-04-19 21:41] MED LIST changes: -CEFE1FRO IV; +FERR324T22 PO; +GLU500 PO; +LIP10 PO; +LISI10TA29 PO; +SSREG SUBCUT; -TRAM50TA92 PO
[2022-04-19 22:00] VITALS: BP_SYST 136
--- NOTE | 2022-04-19 22:00 | NUR ---
Patient came in to the ER with complaints of dizziness x 3 weeks. Patient reports condition has been gradually worsening with associated nausea. Patient denies chest pain, abdominal pain, headache. Denies vomiting, diarrhea or any other remarkable symptoms. Patient breathing easy, respirations even unlabored. Patient states history of diabetes and rt big toe amputation.
--- NOTE | 2022-04-19 22:10 | NUR ---
Patient triaged and placed in waiting room. VS Checked and patient appears in no acute distress at this time. Accompanied by self , awaiting available bed, and MD notified of need for MSE.
[2022-04-19] MEDS ORDERED: MECLIZINE HCL 25 MG TABLET (ANITVERT) PO ONE (23:15)
[2022-04-19 23:42] LABS: BASOPHILS # (AUTO) 0.1 K/uL (0.0-0.2); BASOPHILS % (AUTO) 0.8 % (0.0-2.0); EOSINOPHILS # (AUTO) 0.1 K/uL (0.0-0.4); EOSINOPHILS % (AUTO) 0.8 % (0.0-4.0); HEMATOCRIT 45.2 % (36-54); HEMOGLOBIN 15.2 g/dL (14.0-18.0); LYMPHOCYTES # (AUTO) 1.7 K/uL (1.0-5.5); LYMPHOCYTES % (AUTO) 15.4 % (20.5-51.5); MEAN CORPUSCULAR HEMOGLOBIN 30 pg (27-31); MEAN CORPUSCULAR HGB CONC 34 % (32-36); MEAN CORPUSCULAR VOLUME 88 fL (79.0-98.0); MONOCYTES # (AUTO) 0.5 K/uL (0.0-1.0); MONOCYTES % (AUTO) 4.2 % (1.7-9.3); NEUTROPHILS # (AUTO) 8.7 K/uL (1.8-7.7); NEUTROPHILS % (AUTO) 78.8 % (40.0-70.0); PLATELET COUNT (AUTO) 282 K/uL (130-430); RED BLOOD CELL COUNT(AUTO) 5.12 MIL/uL (4.2-6.2); RED CELL DISTRIBUTION WIDTH 13.6 % (9.0-15.0)
[2022-04-19 23:56] LABS: ANION GAP 7 (5-15); CALCIUM 9.5 mg/dL (8.4-11.0); CHLORIDE 100 mmol/L (98-107); CREATININE 1.65 mg/dL (0.55-1.30); GLUCOSE 330 mg/dL (70-99); UREA NITROGEN, BLOOD 21 mg/dL (8-21)
[2022-04-20 00:05] LABS: ALANINE AMINOTRANSFERASE 15 U/L (12-78); ALBUMIN 3.7 g/dL (3.4-4.8); ASPARTATE AMINOTRANSFERASE 15 U/L (10-37); TOTAL BILIRUBIN 0.2 mg/dL (0.0-1.0)
[2022-04-20 00:27] LABS: GFR AFRICAN AMERICAN 55 mL/min (>90)
[2022-04-20] MEDS ORDERED: ASPIRIN 325 MG TABLET PO ONE (01:15)
--- NOTE | 2022-04-20 02:19 | NUR ---
Admit bed requested Patient will be admitted to care of Admitted to Telemetry unit. Diagnosis Elevated troponin, Dizzeness, CROW Inpatient (Yes or No) yes Observation (Yes or No) no Orientation concerns or request close to nursing station (Yes or No) no Covid Status pending On vent or bipap no Isolation requirements no Needs a sitter no From Home (Yes or if No enter name of facility) yes Requires Dialysis (Yes or No) no Med Rec Completed (Yes of No) yes
[2022-04-20] MEDS ORDERED: GLIP10TA21 PO (03:00)
[2022-04-20] MEDS ORDERED: METF-518 PO (03:01)
[2022-04-20] MEDS ORDERED: OMEP20CA15 PO (03:01)
[2022-04-20] MEDS ORDERED: METF-381 PO (06:45)
--- NOTE | 2022-04-20 09:48 | NUR ---
Patient will be admitted to care of DR TOVAR. Admitted to TELE unit. Will go to room 107. Belongings list completed. Complete and up to date summary report printed. SBAR report to be given at bedside with opportunity for questions.
[2022-04-20 11:30] VITALS: BP_SYST 162
[2022-04-20 11:31] VITALS: BP_SYST 155
[2022-04-20 11:32] VITALS: BP_SYST 152
[2022-04-20] MEDS ORDERED: CARVEDILOL 3.125 MG TABLET (COREG) PO ONE (12:00)
[2022-04-20 16:00] VITALS: BP_SYST 134
[2022-04-20] MEDS: INSULIN REGULAR, HUMAN 100 UNITS/ML, 3 ML VIAL (humuLIN R) SUBCUT PRN ×2 (17:50→21:35)
[2022-04-20 20:00] VITALS: BP_SYST 118
[2022-04-20] MEDS ORDERED: ATORVASTATIN 20 MG TABLET PO ONE (20:00)
[2022-04-20] MEDS ORDERED: CARVEDILOL 3.125 MG TABLET (COREG) PO SCH (21:00)
--- NOTE | 2022-04-20 22:10 | NUR ---
CALLED DR. TOVAR AND INFORMED HIM THE CURRENT BLOOD SUGAR LEVEL OF 340. SUGGESTED TO CHANGE DIET TO MD DAVID AGREED. DIET ORDER CHANGED. PATIENT INFORMED.
[2022-04-21] VITALS (7 sets, daily range): BP systolic 12–139
[2022-04-21] MEDS: glipiZIDE XL 5 MG TAB ( GLUCOTROL XL) PO SCH (06:52)
[2022-04-21] MEDS: INSULIN REGULAR, HUMAN 100 UNITS/ML, 3 ML VIAL (humuLIN R) SUBCUT PRN ×4 (06:55→22:40)
[2022-04-21 07:02] LABS: BASOPHILS % (AUTO) 0.4 % (0.0-2.0); EOSINOPHILS # (AUTO) 0.1 K/uL (0.0-0.4); EOSINOPHILS % (AUTO) 1.1 % (0.0-4.0); HEMATOCRIT 43.3 % (36-54); HEMOGLOBIN 14.6 g/dL (14.0-18.0); LYMPHOCYTES # (AUTO) 2.8 K/uL (1.0-5.5); LYMPHOCYTES % (AUTO) 28.7 % (20.5-51.5); MEAN CORPUSCULAR HEMOGLOBIN 30 pg (27-31); MEAN CORPUSCULAR HGB CONC 34 % (32-36); MEAN CORPUSCULAR VOLUME 89 fL (79.0-98.0); MONOCYTES # (AUTO) 0.7 K/uL (0.0-1.0); MONOCYTES % (AUTO) 6.8 % (1.7-9.3); NEUTROPHILS # (AUTO) 6.1 K/uL (1.8-7.7); PLATELET COUNT (AUTO) 280 K/uL (130-430); RED BLOOD CELL COUNT(AUTO) 4.86 MIL/uL (4.2-6.2); RED CELL DISTRIBUTION WIDTH 13.4 % (9.0-15.0); WHITE BLOOD COUNT (AUTO) 9.7 K/uL (4.8-10.8)
[2022-04-21 07:23] LABS: ALBUMIN 3.2 g/dL (3.4-4.8); CALCIUM 8.6 mg/dL (8.4-11.0); CREATININE 1.73 mg/dL (0.55-1.30); TOTAL BILIRUBIN 0.4 mg/dL (0.0-1.0)
--- NOTE | 2022-04-21 08:00 | NUR ---
AM NOTES HAD BREAKFAST, ORTHOSTATIC BLOOD PRESSURE TAKEN, BP STANDING UP 105/60, STANDING UP 105/50, NOTIFIED DR SELBY, BP MEDS WAS DISCONTINUED. TO START IV FLUIDS FOR HYDRATION.
[2022-04-21] MEDS: ATORVASTATIN 20 MG TABLET PO SCH (08:23)
[2022-04-21] MEDS: PANTOPRAZOLE SODIUM 40 MG TAB PO SCH (08:24)
[2022-04-21] MEDS ORDERED: OMEPRAZOLE Non-Formulary 20 MG CAPSULE.DR PO SCH (09:00)
[2022-04-21] MEDS ORDERED: FLUCONAZOLE 200 MG TABLET (DIFLUCAN) ONE (11:18)
--- NOTE | 2022-04-21 12:00 | NUR ---
NOTES SEEN BY DR ANAND AND DR SELBY, FOR ECHO TODAY. TOOK LUNCH TOLERATED WELL.
[2022-04-21] MEDS: NACL 0.9% 1,000 ML IV SCH ×2 (12:15→22:38)
[2022-04-21] MEDS ORDERED: MIDODRINE HCL 2.5 MG TABLET (PROAMATINE) PO ONE (15:30)
[2022-04-21] MEDS ORDERED: MIDODRINE HCL 5 MG TABLET (PROAMATINE) PO ONE (16:15)
--- NOTE | 2022-04-21 18:00 | NUR ---
NOTES TO START MIDODRINE, NO DIZZINESS NOTED AT THIS TIME.
--- NOTE | 2022-04-21 19:30 | NUR ---
AMBULATE AROUND THE ROOM AMBULATE PATIENT TO THE ROOM, ABLE TO WALK TILL THE DOOR BUT FELT DIZZY AFTER, BACK TO BED.
[2022-04-21] MEDS ORDERED: MIDODRINE HCL 2.5 MG TABLET (PROAMATINE) PO SCH (21:00)
[2022-04-21] MEDS: MIDODRINE HCL 5 MG TABLET (PROAMATINE) PO SCH (22:37)
[2022-04-22] VITALS (7 sets, daily range): BP systolic 93–148
[2022-04-22] MEDS: NACL 0.9% 1,000 ML IV SCH (04:20)
--- NOTE | 2022-04-22 05:58 | NUR ---
Shift Summary: patient is AAOX4. vitals are stable. unable to complete orthostatic blood pressure due to patient sleeping and requesting for it to be done later. patient informed to call staff if he needs to attempt to ambulate for any reason. patient states he understand. patient states he has no questions or concerns at this time. will endorse to oncoming nurse. call light within reach, bed set to low, locked, and alarm on.
[2022-04-22] MEDS: glipiZIDE XL 5 MG TAB ( GLUCOTROL XL) PO SCH (06:32)
[2022-04-22] MEDS: INSULIN REGULAR, HUMAN 100 UNITS/ML, 3 ML VIAL (humuLIN R) SUBCUT PRN ×2 (06:33→12:40)
--- NOTE | 2022-04-22 07:30 | NUR ---
OPENING NOTES: PATIENT IS RESTING IN BED QUIETLY. AAOX4 ABLE TO MAKE NEEDS KNOWN.. NO ADDITIONAL DISTRESS OR PAIN NOTED. EXPLAINED POC AND PATIENT VERBALIZED UNDERSTANDING. BED IN LOW AND LOCK POSITION. BED ALARM ON. CALL LIGHT WITHIN REACH. STABLE CONDITION AT THIS TIME.
[2022-04-22] MEDS: MIDODRINE HCL 5 MG TABLET (PROAMATINE) PO SCH (09:10)
[2022-04-22] MEDS: ATORVASTATIN 20 MG TABLET PO SCH (09:10)
[2022-04-22] MEDS: PANTOPRAZOLE SODIUM 40 MG TAB PO SCH (09:11)
[2022-04-22] MEDS ORDERED: MIDO5TAB4 PO (15:04)
[2022-04-22] MEDS ORDERED: lisinopriL 5 MG TABLET PO ONE (15:15)
--- NOTE | 2022-04-22 17:25 | NUR ---
DC HOME: DC INSTRUCTIONS GIVEN AND EXPLAINED TO PATIENT AND HE VERBALIZED UNDERSTANDING. DENIES PAIN OR DISTRESS. IV REMOVED FROM THE LFA. IV CATH INTACT WHEN REMOVED. COVER SITE WITH GAUZE AND SECURE WITH BAN-AID. NO BLEEDING NOTED. WHEELED OUT PATIENT IN A STABLE CONDITION ACCOMPANIED BY PRIMARY NURSE. FACILITY USED UBER TO DROP OFF PATIENT HOME.
[2022-04-23] MEDS ORDERED: lisinopriL 5 MG TABLET PO SCH (09:00)
[2022-04-23] MEDS ORDERED: REGADENOSON 0.4 MG/5 ML SYRINGE IVP ONE (10:00)
== END 2022-04-22 16:55 | disposition home or self-care (01) | DRG 426 ==
LOC: SED 21:41 → STU 04-20 02:39 → SMU 04-22 10:40
PROVIDERS: ADMIT Internal Medicine; ATTEND Internal Medicine
DX: E87.1 Hypo-osmolality and hyponatremia (principal); N17.0 Acute kidney failure with tubular necrosis; E86.0 Dehydration; E78.5 Hyperlipidemia, unspecified; I65.21 Occlusion and stenosis of right carotid artery; Z20.822 Contact with and (suspected) exposure to COVID-19; Z79.4 Long term (current) use of insulin; Z79.899 Other long term (current) drug therapy
CPT/HCPCS: 36415; 70450-TC; 71045; 76376; 80053; 82962; 83036; 84484; 85025; 93306; 93880; 99291; G0378; J1815; J2785; J7030; J8597

== ENCOUNTER 2022-05-02 21:44 | Emergency (ER) | payer MEDICAID ==
[~2022-05-02] VITALS: Ht 177.8 cm; Wt 79.4 kg
[~2022-05-02 21:44] MED LIST changes: +GLIP10TA21 PO; +METF-381 PO; +METF-518 PO; +MIDO5TAB4 PO; +OMEP20CA15 PO
[2022-05-02 21:56] VITALS: BP_SYST 143
--- NOTE | 2022-05-02 22:06 | NUR ---
Patient triaged and placed in waiting room. VSS and patient appears in no acute distress at this time. Accompanied by self, awaiting available bed.
[2022-05-02] MEDS ORDERED: MUPI15CR12 TP (23:28)
--- NOTE | 2022-05-02 23:35 | NUR ---
MD GOLDMAN IN TRIAGE RM EXAMINING PT.
[2022-05-03 00:13] VITALS: BP_SYST 143
--- NOTE | 2022-05-03 00:13 | NUR ---
Patient given written and verbal discharge instructions and verbalizes understanding. ER MD discussed with patient the results and treatment provided. Patient in stable condition. ID arm band removed. Rx sent to prefered pharmacy. Patient educated on pain management and to follow up with PMD. Opportunity for questions provided and answered. Medication side effect fact sheet provided.
== END 2022-05-03 00:13 | disposition home or self-care (01) ==
LOC: SED 21:44
DX: L01.00 Impetigo, unspecified (principal); H62.42 Otitis externa in other diseases classified elsewhere, left ear; E11.9 Type 2 diabetes mellitus without complications; Z79.4 Long term (current) use of insulin; Z79.899 Other long term (current) drug therapy
CPT/HCPCS: 99283

== ENCOUNTER 2022-07-03 05:21 | Emergency (ER) | payer MEDICAID ==
[~2022-07-03] VITALS: Ht 177.8 cm; Wt 83.9 kg
[~2022-07-03 05:21] MED LIST changes: -FERR324T22 PO; -GLIP5TAB13 PO; -GLU500 PO; -LIP10 PO; -LISI10TA29 PO; -METF-518 PO; +MUPI15CR12 TP
[2022-07-03 05:25] VITALS: BP_SYST 174
[2022-07-03] MEDS ORDERED: METOCLOPRAMIDE HCL 10 MG/2 ML VIAL IVP ONE (06:30)
[2022-07-03] MEDS ORDERED: DIPHENHYDRAMINE INJ 50 MG/ML VIAL IVP ONE (06:30)
[2022-07-03 07:11] LABS: BASOPHILS # (AUTO) 0.1 K/uL (0.0-0.2); BASOPHILS % (AUTO) 0.6 % (0.0-2.0); EOSINOPHILS # (AUTO) 0.1 K/uL (0.0-0.4); EOSINOPHILS % (AUTO) 0.5 % (0.0-4.0); HEMATOCRIT 45.2 % (36-54); HEMOGLOBIN 15.6 g/dL (14.0-18.0); LYMPHOCYTES # (AUTO) 1.7 K/uL (1.0-5.5); LYMPHOCYTES % (AUTO) 16.3 % (20.5-51.5); MEAN CORPUSCULAR HEMOGLOBIN 30 pg (27-31); MEAN CORPUSCULAR HGB CONC 35 % (32-36); MEAN CORPUSCULAR VOLUME 87 fL (79.0-98.0); MONOCYTES # (AUTO) 0.6 K/uL (0.0-1.0); NEUTROPHILS % (AUTO) 76.6 % (40.0-70.0); PLATELET COUNT (AUTO) 333 K/uL (130-430); RED BLOOD CELL COUNT(AUTO) 5.18 MIL/uL (4.2-6.2); RED CELL DISTRIBUTION WIDTH 13.4 % (9.0-15.0); WHITE BLOOD COUNT (AUTO) 10.5 K/uL (4.8-10.8)
[2022-07-03 07:54] LABS: INR 0.9 (0.80-1.20); PROTHROMBIN TIME 9.7 SECS (9.5-12.5)
[2022-07-03 08:08] LABS: ANION GAP 9 (5-15); CHLORIDE 96 mmol/L (98-107)
[2022-07-03 08:09] LABS: CALCIUM 9.9 mg/dL (8.4-11.0); CREATININE 1.91 mg/dL (0.55-1.30); GFR AFRICAN AMERICAN 47 mL/min (>90); GLUCOSE 408 mg/dL (70-99); UREA NITROGEN, BLOOD 25 mg/dL (8-21)
[2022-07-03 08:10] LABS: ALANINE AMINOTRANSFERASE 29 U/L (12-78); ALBUMIN 3.7 g/dL (3.4-4.8); ASPARTATE AMINOTRANSFERASE 24 U/L (10-37); C-REACTIVE PROTEIN QUANT < 0.2 mg/dL (0-0.5); TOTAL BILIRUBIN 0.4 mg/dL (0.0-1.0)
[2022-07-03] MEDS ORDERED: IBUP-1971 PO (08:19)
[2022-07-03] MEDS ORDERED: HYDR-3917 PO (08:19)
[2022-07-03] MEDS ORDERED: INSULIN REGULAR, HUMAN 10 UNITS/0.1 ML, 3 ML VIAL IVP ONE (08:30)
[2022-07-03 08:49] VITALS: BP_SYST 145
== END 2022-07-03 08:49 | disposition home or self-care (01) ==
LOC: SED 05:21
DX: E11.65 Type 2 diabetes mellitus with hyperglycemia (principal); R51.9 Headache, unspecified; R11.0 Nausea; Z79.4 Long term (current) use of insulin; Z79.899 Other long term (current) drug therapy
CPT/HCPCS: 99285; 96374; 70450; 96375; 80053; 85025; 85610; 85651; 85730; 86140; 36415; 76376; J1200; J1815; J2765

== ENCOUNTER 2022-11-28 17:08 | Inpatient (IN) | payer MEDICAID ==
[~2022-11-28] VITALS: Ht 170.2 cm; Wt 65.3 kg
[~2022-11-28 17:08] MED LIST changes: +HYDR-3917 PO; +IBUP-1971 PO
[2022-11-28 17:28] VITALS: BP_SYST 127; PULSE 85; RESP 18; TEMP 98.3; O2SAT 98
[2022-11-28] MEDS ORDERED: KETOROLAC TROMETHAMINE 30 MG VIAL IVP ONE (17:45)
[2022-11-28 18:14] LABS: ANION GAP 11 (5-15); CALCIUM 8.2 mg/dL (8.4-11.0); CHLORIDE 101 mmol/L (98-107); CREATININE 2.01 mg/dL (0.55-1.30); GFR AFRICAN AMERICAN 44 mL/min (>90); GLUCOSE 177 mg/dL (74-106); UREA NITROGEN, BLOOD 27 mg/dL (8-21)
[2022-11-28 18:21] LABS: ALANINE AMINOTRANSFERASE 12 U/L (12-78); ASPARTATE AMINOTRANSFERASE 13 U/L (10-37); TOTAL BILIRUBIN 0.4 mg/dL (0.0-1.0)
[2022-11-28 18:25] LABS: BASOPHILS # (AUTO) 0.1 K/uL (0.0-0.2); BASOPHILS % (AUTO) 0.6 % (0.0-2.0); EOSINOPHILS % (AUTO) 0.2 % (0.0-4.0); HEMATOCRIT 38.6 % (36-54); HEMOGLOBIN 12.6 g/dL (14.0-18.0); LYMPHOCYTES # (AUTO) 1.1 K/uL (1.0-5.5); LYMPHOCYTES % (AUTO) 10.3 % (20.5-51.5); MEAN CORPUSCULAR HEMOGLOBIN 29 pg (27-31); MEAN CORPUSCULAR HGB CONC 33 % (32-36); MEAN CORPUSCULAR VOLUME 90 fL (79.0-98.0); MONOCYTES # (AUTO) 0.7 K/uL (0.0-1.0); MONOCYTES % (AUTO) 6.3 % (1.7-9.3); NEUTROPHILS # (AUTO) 9.1 K/uL (1.8-7.7); NEUTROPHILS % (AUTO) 82.6 % (40.0-70.0); PLATELET COUNT (AUTO) 288 K/uL (130-430); RED BLOOD CELL COUNT(AUTO) 4.31 MIL/uL (4.2-6.2); RED CELL DISTRIBUTION WIDTH 13.1 % (9.0-15.0); WHITE BLOOD COUNT (AUTO) 11.1 K/uL (4.8-10.8)
[2022-11-28] MEDS ORDERED: AMPICILLIN SODIUM/SULBACTAM NA 3 GM in NS 100 ML IV ONE (18:30)
[2022-11-28] MEDS ORDERED: NACL 0.9% 1,000 ML IV ONE (19:00)
[2022-11-28] MEDS ORDERED: ONDANSETRON HCL 4 MG/2 ML VIAL IVP PRN (19:45)
[2022-11-28] MEDS ORDERED: HEPARIN SODIUM,PORCINE 5,000 UNITS/ML VIAL IVP ONE (19:45)
[2022-11-28] MEDS ORDERED: ACETAMINOPHEN 325 MG TABLET PO PRN (19:45)
[2022-11-28] MEDS: NACL 0.9% 1,000 ML IV SCH (19:45)
[2022-11-28] MEDS ORDERED: AMPICILLIN SODIUM/SULBACTAM NA 3 GM VIAL ONE (19:49)
[2022-11-28] MEDS ORDERED: SACU1TAB PO (21:10)
[2022-11-28] MEDS ORDERED: CARV6.2554 PO (21:11)
[2022-11-28] MEDS ORDERED: DAPA10TA PO (21:11)
[2022-11-28] MEDS ORDERED: OMEP20CA15 PO (21:12)
[2022-11-28] MEDS ORDERED: D5W 1,000 ML IV PRN (21:15)
[2022-11-28] MEDS ORDERED: GLUCOSE (DEXTROSE) ORAL GEL -Adults PO PRN (21:15)
[2022-11-28] MEDS ORDERED: DEXTROSE 50% JECT 50 ML DISP.SYRIN IVP PRN (21:15)
[2022-11-28] MEDS ORDERED: INSU100I26 SQ (21:18)
[2022-11-28] MEDS ORDERED: INSU100V43 SUBCUT (21:24)
[2022-11-28] MEDS ORDERED: FERR-69 PO (21:25)
[2022-11-28] MEDS ORDERED: GABA-529 PO (21:26)
[2022-11-28 22:00] VITALS: BP_SYST 96; PULSE 69; RESP 18; TEMP 96.5; O2SAT 96
[2022-11-28] MEDS ORDERED: AMPICILLIN SODIUM/SULBACTAM NA 1.5 GM VIAL ONE (23:10)
[2022-11-29] MEDS: AMPICILLIN SODIUM/SULBACTAM NA 1.5 GM in NS 50 ML IV SCH ×2 (00:52→05:45)
[2022-11-29 02:04] VITALS: O2SAT 96
[2022-11-29 02:48] VITALS: BP_SYST 96; PULSE 69; RESP 18; TEMP 96.5
[2022-11-29 04:45] LABS: BASOPHILS # (AUTO) 0.1 K/uL (0.0-0.2); BASOPHILS % (AUTO) 0.5 % (0.0-2.0); EOSINOPHILS # (AUTO) 0.1 K/uL (0.0-0.4); EOSINOPHILS % (AUTO) 0.6 % (0.0-4.0); HEMATOCRIT 37.8 % (36-54); HEMOGLOBIN 12.4 g/dL (14.0-18.0); MEAN CORPUSCULAR HEMOGLOBIN 29 pg (27-31); MEAN CORPUSCULAR HGB CONC 33 % (32-36); MEAN CORPUSCULAR VOLUME 89 fL (79.0-98.0); MONOCYTES # (AUTO) 0.9 K/uL (0.0-1.0); MONOCYTES % (AUTO) 8.4 % (1.7-9.3); NEUTROPHILS # (AUTO) 7.5 K/uL (1.8-7.7); NEUTROPHILS % (AUTO) 71.5 % (40.0-70.0); PLATELET COUNT (AUTO) 274 K/uL (130-430); RED BLOOD CELL COUNT(AUTO) 4.23 MIL/uL (4.2-6.2); RED CELL DISTRIBUTION WIDTH 13.3 % (9.0-15.0); WHITE BLOOD COUNT (AUTO) 10.5 K/uL (4.8-10.8)
[2022-11-29 05:07] LABS: ALBUMIN 2.6 g/dL (3.4-4.8); CALCIUM 7.9 mg/dL (8.4-11.0); CREATININE 1.77 mg/dL (0.55-1.30); TOTAL BILIRUBIN 0.3 mg/dL (0.0-1.0)
[2022-11-29] MEDS: NACL 0.9% 1,000 ML IV SCH ×3 (05:44→23:41)
[2022-11-29 08:00] VITALS: BP_SYST 145; PULSE 85; RESP 18; TEMP 97.2; O2SAT 98
[2022-11-29] MEDS: SACUBITRIL/VALSARTAN 24 MG-26 MG 1 TABLET PO SCH (09:05)
[2022-11-29] MEDS: PANTOPRAZOLE SODIUM 40 MG TAB PO SCH (09:06)
[2022-11-29] MEDS: GABAPENTIN 100 MG CAPSULE PO SCH ×3 (09:06→21:28)
[2022-11-29] MEDS: CARVEDILOL 6.25 MG TABLET (COREG) PO SCH (09:06)
[2022-11-29] MEDS: MORPHINE 2 MG/ML INJ. SYRINGE IVP PRN ×2 (09:22→21:40)
[2022-11-29] MEDS ORDERED: AMPICILLIN IV ONE (13:00)
[2022-11-29] MEDS ORDERED: NORMAL SALINE IV ONE (13:00)
[2022-11-29] MEDS ORDERED: SULBACTAM NA IV ONE (13:00)
[2022-11-29 14:00] VITALS: BP_SYST 105; PULSE 63; RESP 15; TEMP 97.7; O2SAT 99
[2022-11-29] MEDS: HYDROcodone/ACETAMIN 10-325 MG TAB PO PRN ×2 (14:54→19:51)
[2022-11-29] MEDS: INSULIN LISPRO SLIDING SCALE 100 UNITS/ML, 3 ML VIAL (humaLOG) SUBCUT PRN ×2 (17:57→21:36)
[2022-11-29] MEDS: NORMAL SALINE IV SCH ×2 (18:15→23:40)
[2022-11-29] MEDS: SULBACTAM NA IV SCH ×2 (18:15→23:40)
[2022-11-29] MEDS: AMPICILLIN IV SCH ×2 (18:15→23:40)
[2022-11-29 19:00] VITALS: O2SAT 98
[2022-11-29 20:00] VITALS: BP_SYST 110; PULSE 62; RESP 18; TEMP 96.7; O2SAT 97
[2022-11-30 00:25] VITALS: BP_SYST 115; PULSE 65; RESP 20; TEMP 97.3; O2SAT 98
[2022-11-30] MEDS: MORPHINE 2 MG/ML INJ. SYRINGE IVP PRN (03:56)
[2022-11-30] MEDS: NACL 0.9% 1,000 ML IV SCH (04:02)
[2022-11-30] MEDS: AMPICILLIN IV SCH ×2 (05:44→11:25)
[2022-11-30] MEDS: SULBACTAM NA IV SCH ×2 (05:44→11:25)
[2022-11-30] MEDS: NORMAL SALINE IV SCH ×2 (05:44→11:25)
[2022-11-30 05:55] LABS: BASOPHILS # (AUTO) 0.1 K/uL (0.0-0.2); BASOPHILS % (AUTO) 0.6 % (0.0-2.0); EOSINOPHILS # (AUTO) 0.1 K/uL (0.0-0.4); EOSINOPHILS % (AUTO) 1.4 % (0.0-4.0); HEMATOCRIT 36.8 % (36-54); HEMOGLOBIN 11.9 g/dL (14.0-18.0); LYMPHOCYTES # (AUTO) 1.9 K/uL (1.0-5.5); LYMPHOCYTES % (AUTO) 21.4 % (20.5-51.5); MEAN CORPUSCULAR HEMOGLOBIN 29 pg (27-31); MEAN CORPUSCULAR HGB CONC 33 % (32-36); MEAN CORPUSCULAR VOLUME 90 fL (79.0-98.0); MONOCYTES # (AUTO) 0.7 K/uL (0.0-1.0); MONOCYTES % (AUTO) 7.9 % (1.7-9.3); NEUTROPHILS # (AUTO) 6.1 K/uL (1.8-7.7); NEUTROPHILS % (AUTO) 68.7 % (40.0-70.0); PLATELET COUNT (AUTO) 271 K/uL (130-430); RED BLOOD CELL COUNT(AUTO) 4.08 MIL/uL (4.2-6.2); RED CELL DISTRIBUTION WIDTH 13.3 % (9.0-15.0); WHITE BLOOD COUNT (AUTO) 8.9 K/uL (4.8-10.8)
[2022-11-30 06:09] LABS: CREATININE 1.33 mg/dL (0.55-1.30)
[2022-11-30 08:00] VITALS: BP_SYST 139; PULSE 74; RESP 15; TEMP 98.3; O2SAT 98
[2022-11-30 08:30] VITALS: O2SAT 98
[2022-11-30] MEDS: SACUBITRIL/VALSARTAN 24 MG-26 MG 1 TABLET PO SCH (08:40)
[2022-11-30] MEDS: PANTOPRAZOLE SODIUM 40 MG TAB PO SCH (08:41)
[2022-11-30] MEDS: GABAPENTIN 100 MG CAPSULE PO SCH ×2 (08:41→14:34)
[2022-11-30] MEDS: CARVEDILOL 6.25 MG TABLET (COREG) PO SCH (08:41)
[2022-11-30] MEDS ORDERED: HYDR-3927 PO (09:44)
[2022-11-30] MEDS ORDERED: AUG875 PO (09:44)
[2022-11-30] MEDS ORDERED: SILV50CR43 TP (13:47)
[2022-11-30] MEDS: HYDROcodone/ACETAMIN 10-325 MG TAB PO PRN (14:00)
[2022-11-30 14:18] VITALS: BP_SYST 136; PULSE 94; RESP 15; TEMP 98.3; O2SAT 98
== END 2022-11-30 14:15 | disposition home health service (06) | DRG 843 ==
LOC: SED 17:08 → SMU 19:37
PROVIDERS: ADMIT Specialist; ATTEND Specialist
DX: T24.312A Burn of third degree of left thigh, initial encounter (principal); N17.0 Acute kidney failure with tubular necrosis; E83.51 Hypocalcemia; E88.09 Other disorders of plasma-protein metabolism, not elsewhere classified; L03.116 Cellulitis of left lower limb; E11.9 Type 2 diabetes mellitus without complications; X08.8XXA Exposure to other specified smoke, fire and flames, initial encounter; Z79.4 Long term (current) use of insulin; Z79.899 Other long term (current) drug therapy; Z79.1 Long term (current) use of non-steroidal anti-inflammatories (NSAID); Y93.89 Activity, other specified; Y92.89 Other specified places as the place of occurrence of the external cause; Y99.8 Other external cause status
CPT/HCPCS: 36415; 71045; 80048; 80053; 82962; 83605; 84484; 85025; 85610-TC; 87040; 93005; 96361; 96365; 96375; 99285; J0295; J1644; J1885; J2270; J7030